=== PATIENT | female | born 1935 | race Caucasian/White ===

== ENCOUNTER 2017-11-02 18:50 | Inpatient (IN) | payer OTHER, MEDICAID, MEDICARE ==
[~2017-11-02 18:50] MED LIST: AMLO5TAB2 PO; CLON0.5T PO; SIMV40TA PO; ZOLP5TAB3 PO
[2017-11-02] MEDS ORDERED: SODIUM CHLORIDE 0.9% FLUSH 10 ML FLUSH IV FLUSH PRN (19:45)
[2017-11-02] MEDS ORDERED: NALOXONE HCL 0.4 MG/ML AMP IV PUSH PRN (19:45)
[2017-11-02] MEDS ORDERED: ONDANSETRON HCL 4 MG/2 ML VIAL IVP PRN (19:45)
[2017-11-02 20:00] VITALS: BP 139/87; PULSE 85; RESP 19; TEMP 98.2; O2SAT 98
[2017-11-02] MEDS ORDERED: MORPHINE SULFATE 2 MG/ML SYRINGE IV PUSH PRN (20:00)
[2017-11-02] MEDS: SODIUM CHLOR 0.9% 1000 ML INJ 1,000 ML IV SCH (21:40)
[2017-11-02] MEDS: FAMOTIDINE 20 MG/2 ML VIAL IV PUSH SCH (21:41)
[2017-11-02] MEDS: SODIUM CHLORIDE 0.9% FLUSH 10 ML FLUSH IV FLUSH SCH (21:41)
--- NOTE | 2017-11-02 23:24 | HHI.HP ---
HPI Service [facility] Hospitalists Primary Care Physician Unknown . Admission Diagnosis Possible Esophageal Perforation . Diagnoses: (1) Esophageal perforation (2) Epigastric abdominal pain Chief Complaint: Epigastric pain Travel History International Travel<30 Days: No Contact w/Intl Traveler <30 Da: No History of Present Illness Ms. Driver is an 82 y/o female who presented to the emergency department and [place] complaining of epigastric pain for more than 1 week. She had an abdominal/pelvis CT done that showed a very small hiatal hernia with abnormal appearing thickened distal esophagus. There is a 2.0 x 1.3 cm air-filled collection at the GE junction which may be extraluminal and concerning for focal esophageal perforation. The patient was transferred to [facility] for medical management under the hospitalist service. The patient is seen in her hospital room with forestry foreman at bedside. She reports that her primary care physician gave her penicillin about 3 weeks ago for an ear infection and she had subsequent nausea and vomiting multiple times. She reports having gastritis for the past 10 years. She also reports some left flank pain - urinalysis was negative. She is clearly suffering from severe anxiety during the time of my visit it appears medically stable otherwise. It is difficult to get a good history from her as she tends to veer off topic frequently and frequently loses focus. She is complaining of difficulty sleeping and is requesting her anxiety medication. The patient reports generalized weakness and uses rolling walker for ambulation. Review of Systems Except as stated in HPI: all other systems reviewed are Neg Past Family Social History Past Medical History Hyperlipidemia Gastritis Depression Anxiety Reports history of myocardial infarction 3 but reports medical therapy only - denies cardiac stents or open heart surgery . Past Surgical History Hysterectomy with oophorectomy Left knee arthroplasty Left hip/femur ORIF Cholecystectomy . Reported Medications Reported Meds & Active Scripts Active Reported Zolpidem (Zolpidem Tartrate) 5 Mg Tab 5 Mg PO HS PRN Clonazepam 0.5 Mg Tab 0.5 Mg PO BID Simvastatin 40 Mg Tab 40 Mg PO HS Amlodipine (Amlodipine Besylate) 5 Mg Tab 5 Mg PO DAILY . Allergies: Coded Allergies: Penicillins (Verified Allergy, Severe, 11/02/17) aspirin (Verified Allergy, Unknown, 11/02/17) Family History Mother with heart problems Father with prostate cancer Sisters x 3 with WI . Social History Tobacco: denies ever smoking Alcohol: denies drinking alcohol Illicit Drugs: denies The patient reports that she lives alone and has to do everything for herself. . Physical Exam Vital Signs Vital Signs Date Time Temp Pulse Resp B/P (MAP) Pulse Ox O2 Delivery O2 Flow Rate FiO2 11/02/17 20:00 98.2 85 19 139/87 (104) 98 Physical Exam CONSTITUTIONAL: This is a well-nourished, well-developed elderly female patient, anxious and tearful throughout visit. INTEGUMENTARY: No rashes, ecchymoses or lesions. Cool and dry. HEAD: Atraumatic. Normocephalic. EYES: No scleral icterus. No injection or drainage. ENT: Nose without bleeding, purulent drainage. NECK: Trachea midline. No JVD. CARDIOVASCULAR: Regular rate and rhythm without murmurs, gallops, or rubs. RESPIRATORY: Clear to auscultation. Breath sounds equal bilaterally. No wheezes , rales, or rhonchi. GASTROINTESTINAL: Normal bowel sounds. Abdomen soft, mild epigastric tenderness without rebound, nondistended. No guarding. MUSCULOSKELETAL: Extremities without clubbing, cyanosis, or edema. No calf tenderness. NEUROLOGICAL: Awake and alert. Motor and sensory grossly within normal limits. Normal speech. PSYCHIATRIC: Appears severely anxious and tearful throughout visit. . Laboratory Laboratory Tests Test 11/02/17 16:20 White Blood Count 5.4 TH/MM3 Red Blood Count 4.02 MIL/MM3 Hemoglobin 12.3 GM/DL Hematocrit 37.5 % Mean Corpuscular Volume 93.3 FL Mean Corpuscular Hemoglobin 30.6 PG Mean Corpuscular Hemoglobin Concent 32.8 % Red Cell Distribution Width 14.7 % Platelet Count 212 TH/MM3 Mean Platelet Volume 10.7 FL Immature Granulocyte % (Auto) 0.2 % Neutrophils (%) (Auto) 61.0 % Lymphocytes (%) (Auto) 29.2 % Monocytes (%) (Auto) 8.1 % Eosinophils (%) (Auto) 1.1 % Basophils (%) (Auto) 0.4 % Immature Granulocyte # (Auto) 0.0 TH/MM3 Neutrophils # (Auto) 3.3 TH/MM3 Lymphocytes # (Auto) 1.6 TH/MM3 Monocytes # (Auto) 0.4 TH/MM3 Eosinophils # (Auto) 0.1 TH/MM3 Basophils # (Auto) 0.0 TH/MM3 CBC Comment DIFF FINAL Differential Comment Urine Color YELLOW Urine Turbidity CLEAR Urine pH 7.5 Urine Specific [place] LESS/EQUAL 1.005 Urine Protein NEG mg/dL Urine Glucose (UA) NEG mg/dL Urine Ketones NEG mg/dL Urine Occult Blood NEG Urine Nitrite NEG Urine Bilirubin NEG Urine Urobilinogen 0.2 MG/DL Urine Leukocyte Esterase NEG Urine Squamous Epithelial Cells 0-5 /hpf Microscopic Urinalysis Comment CULT NOT INDICATED Blood Urea Nitrogen 13 MG/DL Creatinine 0.90 MG/DL Random Glucose 120 MG/DL Total Protein 7.8 GM/DL Albumin 3.7 GM/DL Calcium Level 9.3 MG/DL Alkaline Phosphatase 112 U/L Aspartate Amino Transf (AST/SGOT) 14 U/L Alanine Aminotransferase (ALT/SGPT) 17 U/L Total Bilirubin 0.3 MG/DL Sodium Level 142 MEQ/L Potassium Level 3.7 MEQ/L Chloride Level 106 MEQ/L Carbon Dioxide Level 30.0 MEQ/L Anion Gap 6 MEQ/L Estimat Glomerular Filtration Rate 60 ML/MIN Troponin I LESS THAN 0.02 NG/ML Lipase 210 U/L . Imaging Last Impressions Chest X-Ray 11/02/171604 Signed Impressions: Service Date/Time: Thursday, November 02, 2017 16:32 - CONCLUSION: No acute disease. Andrei Correa MD Abdomen/Pelvis CT 11/02/17 160 Signed Impressions: Service Date/Time: Thursday, November 02, 2017 17:13 - CONCLUSION: 1. Very small hiatal hernia with abnormal appearing thickened distal esophagus. There is a 2.0 x 1.3 cm air-filled collection at the GE junction which may be extraluminal and concerning for focal esophageal perforation. Clinical correlation is recommended. 2. No additional acute abnormality in the abdomen or pelvis. 3. Colonic diverticulosis without evidence for diverticulitis. Yogi Lowery MD . Caprini VTE Risk Assessment Caprini VTE Risk Assessment: Mod/High Risk (score >= 2) Caprini Risk Assessment Model Point Value = 1 Point Value = 2 Point Value = 3 Point Value = 5 Age 41-60 Minor surgery BMI > 25 kg/m2 Swollen legs Varicose veins or History of unexplained or recurrent spontaneous Oral contraceptives or hormone replacement Sepsis (< 1 month) Serious lung disease, including pneumonia (< 1 month) Abnormal pulmonary function Acute myocardial infarction Congestive heart failure (< 1 month) History of inflammatory bowel disease Medical patient at bed rest Age 61-74 Arthroscopic surgery Major open surgery (> 45 min) Laparoscopic surgery (> 45 min) Malignancy Confined to bed (> 72 hours) Immobilizing plaster cast Central venous access Age >= 75 History of VTE Family history of VTE Factor V Leiden Prothrombin [id number] Lupus anticoagulant Anticardiolipin antibodies Elevated serum homocysteine Heparin-induced thrombocytopenia Other congenital or acquired thrombophilia Stroke (< 1 month) Elective arthroplasty Hip, pelvis, or leg fracture Acute spinal cord injury (< 1 month) Prophylaxis Regimen Total Risk Factor Score Risk Level Prophylaxis Regimen 0-1 Low Early ambulation 2 Moderate Order ONE of the following: *Sequential Compression Device (SCD) *Heparin 5000 units SQ BID 3-4 Higher Order ONE of the following medications: *Heparin 5000 units SQ TID *Enoxaparin/Lovenox 40 mg SQ daily (WT < 150 kg, CrCl > 30 mL/min) *Enoxaparin/Lovenox 30 mg SQ daily (WT < 150 kg, CrCl > 10-29 mL/min) *Enoxaparin/Lovenox 30 mg SQ BID (WT < 150 kg, CrCl > 30 mL/min) AND/OR *Sequential Compression Device (SCD) 5 or more Highest Order ONE of the following medications: *Heparin 5000 units SQ TID (Preferred with Epidurals) *Enoxaparin/Lovenox 40 mg SQ daily (WT < 150 kg, CrCl > 30 mL/min) *Enoxaparin/Lovenox 30 mg SQ daily (WT < 150 kg, CrCl > 10-29 mL/min) *Enoxaparin/Lovenox 30 mg SQ BID (WT < 150 kg, CrCl > 30 mL/min) AND *Sequential Compression Device (SCD) Assessment and Plan Problem List: (1) Anxiety ICD Code: F41.9 - Anxiety disorder, unspecified (2) Esophageal perforation ICD Code: K22.3 - Perforation of esophagus Status: Acute (3) Epigastric abdominal pain ICD Code: R10.13 - Epigastric pain Status: Acute Assessment and Plan Ms. Driver is an 82 y/o female who presented to the emergency department and [place] complaining of epigastric pain for more than 1 week. She had an abdominal/pelvis CT done that showed a very small hiatal hernia with abnormal appearing thickened distal esophagus. There is a 2.0 x 1.3 cm air-filled collection at the GE junction which may be extraluminal and concerning for focal esophageal perforation. The patient was transferred to [facility] for medical management under the hospitalist service. Concern for esophageal perforation Epigastric abdominal pain -NPO -Consult general surgery - ER physician in [place] reportedly spoke with Dr. Owens -Morphine 2 mg IV every 3 hours as needed pain -Famotidine 20 mg IV every 12 hours Severe anxiety -Holding home medications because of concern for esophageal perforation -takes Klonopin at home -We will give Ativan 0.5 mg IV 1 dose now -Monitor for effectiveness Coronary artery disease History of WI per patient -Continuous cardiac telemetry to monitor for cardiac arrhythmias Physical therapy consulted to prevent further debility -patient reports generalized weakness and uses rolling walker for ambulation DVT prophylaxis -SCDs/teds Discussed Condition With patient and RN Physician Certification 2 Midnight Certification Type: Admission for Inpatient Services Order for Inpatient Services The services are ordered in accordance with Medicare regulations or non- Medicare payer requirements, as applicable. In the case of services not specified as inpatient-only, they are appropriately provided as inpatient services in accordance with the 2-midnight benchmark. Estimated LOS (days): 3 days is the estimated time the patient will need to remain in the hospital, assuming treatment plan goals are met and no additional complications. Post-Hospital Plan: Not yet determined Concepción Newby November 02, 2017 23:24
[2017-11-03] VITALS (7 sets, daily range): BP systolic 138–179; BP diastolic 70–97; PULSE 62–77; RESP 17–19; TEMP 97.4–98.1; O2SAT 95–98
[2017-11-03] MEDS ORDERED: LORazepam 2 MG/ML VIAL IV PUSH ONE
[2017-11-03] MEDS ORDERED: LORazepam 2 MG/ML VIAL IV ONE (03:15)
[2017-11-03 08:43] LABS: AUTOMATED NEUTROPHIL # 3.1 TH/MM3 (1.8-7.7); BASOPHIL % 0.5 % (0.0-2.0); EOSINOPHIL # 0.1 TH/MM3 (0-0.4); EOSINOPHIL % 1.1 % (0.0-4.0); HEMATOCRIT 36.7 % (35.0-46.0); HEMOGLOBIN 12.4 GM/DL (11.6-15.3); LYMPH % 24.9 % (9.0-44.0); LYMPHOCYTE # 1.2 TH/MM3 (1.0-4.8); MEAN CELL VOLUME 92.9 FL (80.0-100.0); MEAN CORPUSCULAR HEMOGLOBIN 31.2 PG (27.0-34.0); MEAN CORPUSCULAR HGB CONC 33.6 % (32.0-36.0); MEAN PLATELET VOLUME 8.7 FL (7.0-11.0); MONO % 8.6 % (0.0-8.0); MONOCYTE # 0.4 TH/MM3 (0-0.9); NEUT % 64.9 % (16.0-70.0); PLATELET COUNT 190 TH/MM3 (150-450); RED BLOOD COUNT 3.96 MIL/MM3 (4.00-5.30); RED CELL DISTRIBUTION WIDTH 14.7 % (11.6-17.2); WHITE BLOOD COUNT 4.7 TH/MM3 (4.0-11.0)
[2017-11-03] MEDS: FAMOTIDINE 20 MG/2 ML VIAL IV PUSH SCH ×2 (08:55→20:33)
[2017-11-03 08:58] LABS: BICARBONATE 28.2 MEQ/L (21.0-32.0); CREATININE 0.78 MG/DL (0.50-1.00)
[2017-11-03] MEDS: SODIUM CHLORIDE 0.9% FLUSH 10 ML FLUSH IV FLUSH SCH ×2 (09:00→20:33)
[2017-11-03] MEDS: SODIUM CHLOR 0.9% 1000 ML INJ 1,000 ML IV SCH (11:24)
--- NOTE | 2017-11-03 11:28 | HHI.PR ---
Subjective Remarks Note from admitting physician as 82 y/o female who presented to the emergency department and [place] complaining of epigastric pain for more than 1 week. She had an abdominal/pelvis CT done that showed a very small hiatal hernia with abnormal appearing thickened distal esophagus. There is a 2.0 x 1.3 cm air-filled collection at the GE junction which may be extraluminal and concerning for focal esophageal perforation. The patient was transferred to [facility] for medical management under the hospitalist service. Her primary care physician gave her penicillin about 3 weeks ago for an ear infection and she had subsequent nausea and vomiting multiple times. She reports having gastritis for the past 10 years. She also reports some left flank pain - urinalysis was negative. She is clearly suffering from severe anxiety during the time of my visit it appears medically stable otherwise. It is difficult to get a good history from her as she tends to veer off topic frequently and frequently loses focus. She is complaining of difficulty sleeping and is requesting her anxiety medication. The patient reports generalized weakness and uses rolling walker for ambulation. Hospitalist Note: 11/03: Seen in her bedroom I do not think she has Esophageal Perforation, her abdomen is benign, also she states had recent workup and was negative. no nausea, vomit or diarrhea, Seen in the presence of her Son in the room. discussed with commission specialist. Objective Vital Signs Date Time Temp Pulse Resp B/P (MAP) Pulse Ox O2 Delivery O2 Flow Rate FiO2 11/03/17 08:00 98.1 62 18 161/90 (113) 97 11/03/17 04:00 98.1 62 18 140/71 (94) 98 11/03/17 00:11 73 11/03/17 00:00 97.9 77 19 179/80 (113) 95 11/02/17 20:00 98.2 85 19 139/87 (104) 98 I/O 11/02/17 11/02/17 11/02/17 11/03/17 11/03/17 11/03/17 07:00 15:00 23:00 07:00 15:00 23:00 Intake Total 620 ml Output Total 800 ml Balance -180 ml Intake Oral 0 ml IV Total 620 ml Output Urine Total 800 ml # Voids 2 Result Diagram: 11/03/17 0711/03/17 07 Procedures None Other Results Laboratory Tests Test 11/03/17 07:17 White Blood Count 4.7 TH/MM3 Red Blood Count 3.96 MIL/MM3 Hemoglobin 12.4 GM/DL Hematocrit 36.7 % Mean Corpuscular Volume 92.9 FL Mean Corpuscular Hemoglobin 31.2 PG Mean Corpuscular Hemoglobin Concent 33.6 % Red Cell Distribution Width 14.7 % Platelet Count 190 TH/MM3 Mean Platelet Volume 8.7 FL Neutrophils (%) (Auto) 64.9 % Lymphocytes (%) (Auto) 24.9 % Monocytes (%) (Auto) 8.6 % Eosinophils (%) (Auto) 1.1 % Basophils (%) (Auto) 0.5 % Neutrophils # (Auto) 3.1 TH/MM3 Lymphocytes # (Auto) 1.2 TH/MM3 Monocytes # (Auto) 0.4 TH/MM3 Eosinophils # (Auto) 0.1 TH/MM3 Basophils # (Auto) 0.0 TH/MM3 CBC Comment DIFF FINAL Differential Comment Blood Urea Nitrogen 9 MG/DL Creatinine 0.78 MG/DL Random Glucose 92 MG/DL Calcium Level 9.0 MG/DL Sodium Level 143 MEQ/L Potassium Level 3.8 MEQ/L Chloride Level 109 MEQ/L Carbon Dioxide Level 28.2 MEQ/L Anion Gap 6 MEQ/L Estimat Glomerular Filtration Rate 71 ML/MIN Objective Remarks CONSTITUTIONAL: This is a well-nourished, well-developed elderly female patient, anxious and tearful throughout visit. INTEGUMENTARY: No rashes, ecchymoses or lesions. Cool and dry. HEAD: Atraumatic. Normocephalic. EYES: No scleral icterus. No injection or drainage. ENT: Nose without bleeding, purulent drainage. NECK: Trachea midline. No JVD. CARDIOVASCULAR: Regular rate and rhythm without murmurs, gallops, or rubs. RESPIRATORY: Clear to auscultation. Breath sounds equal bilaterally. No wheezes , rales, or rhonchi. GASTROINTESTINAL: Normal bowel sounds. Abdomen soft, mild epigastric tenderness without rebound, nondistended. No guarding. MUSCULOSKELETAL: Extremities without clubbing, cyanosis, or edema. No calf tenderness. NEUROLOGICAL: Awake and alert. Motor and sensory grossly within normal limits. Normal speech. PSYCHIATRIC: Appears severely anxious and tearful throughout visit. . Medications and IVs Current Medications Medications (Trade) Dose Ordered Sig/Conchis Route Start Time Stop Time Status Last Admin Sodium Chloride 1,000 ml @ 65 mls/hr [id number] IV 11/02/17 20:00 11/02/17 21:40 (NS Flush) 2 ml UNSCH PRN IV FLUSH 11/02/17 19:45 (NS Flush) 2 ml BID IV FLUSH 11/02/17 21:00 11/02/17 21:41 (Zofran Inj) 4 mg Q6H PRN IVP 11/02/17 19:45 (Narcan Inj) 0.4 mg UNSCH PRN IV PUSH 11/02/17 19:45 (Pepcid Inj) 20 mg Q12H IV PUSH 11/02/17 21:00 11/03/17 08:55 (Morphine Inj) 2 mg Q3H PRN IV PUSH 11/02/17 21:45 A/P Assessment and Plan (1) Anxiety ICD Code: F41.9 - Anxiety disorder, unspecified (2) Esophageal perforation ICD Code: K22.3 - Perforation of esophagus Status: Acute (3) Epigastric abdominal pain ICD Code: R10.13 - Epigastric pain Status: Acute Ms. Driver is an 82 y/o female who presented to the emergency department and [place] complaining of epigastric pain for more than 1 week. She had an abdominal/pelvis CT done that showed a very small hiatal hernia with abnormal appearing thickened distal esophagus. There is a 2.0 x 1.3 cm air-filled collection at the GE junction which may be extraluminal and concerning for focal esophageal perforation. The patient was transferred to [facility] for medical management under the hospitalist service. Questionable Esophageal perforation, continue NPO, Barium swallow tomorrow recommended by Doctor Ras Rodriguez. Epigastric abdominal pain -NPO -Morphine 2 mg IV every 3 hours as needed pain -Famotidine 20 mg IV every 12 hours Severe anxiety stable at this time. -Holding home medications because of concern for esophageal perforation -takes Klonopin at home Coronary artery disease History of [place] per patient -Continuous cardiac telemetry to monitor for cardiac arrhythmias Physical therapy consulted to prevent further debility -patient reports generalized weakness and uses rolling walker for ambulation DVT prophylaxis -SCDs/teds Discussed Condition With patient , Nurse Miss Field and Her Son. discussed with doctor Ras Rodriguez Discharge Planning Expected in am tomorrow. Marky Jenkins MD November 03, 2017 11:28
--- NOTE | 2017-11-03 15:57 | MB ---
cc: Jennifer Dimas MD DATE: 11/03/2017 REASON FOR CONSULTATION: Suspected esophageal contained perforation, gastritis and epigastric pain. HISTORY OF PRESENT ILLNESS: This 82-year-old female presented to [place] [facility] with epigastric pain of about 2 weeks' duration. The patient states she does not have any nausea and vomiting, but she is having epigastric pain. There is a history of gastritis for about 10 years and then the patient also complains about left flank pain. The patient is a very poor historian, speaks only [place]e and the entire conversation is conducted with her son and patient through the [employer] service. She underwent CT of abdomen and pelvis and it was read as a possible contained esophageal perforation, but the patient at this point is asymptomatic as far as that is concerned. PAST MEDICAL HISTORY: Longstanding gastritis, hyperlipidemia, depression, anxiety, history of myocardial infarction, but the patient does not have any history of treatment of the heart, so I am not sure about that. PAST SURGICAL HISTORY: Left hip and femur, open reduction and internal fixation of the left knee replacement, hysterectomy, oophorectomy and cholecystectomy. MEDICATIONS: Can be found in the record. SOCIAL HISTORY: The patient does not smoke or drink. PHYSICAL EXAMINATION: GENERAL: Reveals a pleasant 82-year-old lady. HEENT: Normocephalic. No trauma to the head. Pupils are equal, reactive. Extraocular muscles intact. NECK: Supple. Bilateral carotid pulses. No bruits. No lymphadenopathy in the supraclavicular, infraclavicular, axillary area of the neck. CHEST: Bilateral breath sounds. The patient clearly lost some chest wall musculature for she is fairly thin and appears slightly cachectic. HEART: Regular rhythm. ABDOMEN: Soft. No rebound, no guarding. No masses, no tenderness on palpation. The patient is slightly tender on succussion of the left renal fossa, but no referred tenderness is noted. Pelvis is stable. EXTREMITIES: Within normal limits. BACK: Normal. IMPRESSION: I reviewed laboratory and diagnostic procedures. This lady lost about 10 pounds in the last few months. Has epigastric pain symptoms and the CT scan is now performed and reveals questionable esophageal perf. Clinically, this does not correlate. The patient is clearly asymptomatic as far as perforation is concerned and this may be a hiatal hernia or rarely an epiphrenic diverticulum. Very rarely there will be a duplication cyst and such. Nonetheless, at this point it is reasonable to perform dilute barium swallow and see if the patient has any abnormalities either in the sense of perhaps a contained leak or a mass in the esophagus. Based on all this, will tailor further therapy, but there is no indication for surgery at this time. I thank you much for the referral. MD YARON Maya/YUKI , 03:21 PM , 03:56 PM [email or web address]
[2017-11-03] MEDS: MORPHINE SULFATE 4 MG/ML INJ IV PUSH PRN (16:39)
[2017-11-04] VITALS (7 sets, daily range): BP systolic 139–171; BP diastolic 70–93; PULSE 61–116; RESP 15–19; TEMP 97.2–98.2; O2SAT 92–96
[2017-11-04] MEDS: SODIUM CHLOR 0.9% 1000 ML INJ 1,000 ML IV SCH ×2 (03:43→18:09)
[2017-11-04 08:13] LABS: AUTOMATED NEUTROPHIL # 3.1 TH/MM3 (1.8-7.7); BASOPHIL % 0.4 % (0.0-2.0); EOSINOPHIL # 0.1 TH/MM3 (0-0.4); EOSINOPHIL % 1.5 % (0.0-4.0); HEMATOCRIT 38.1 % (35.0-46.0); HEMOGLOBIN 12.8 GM/DL (11.6-15.3); LYMPHOCYTE # 1.1 TH/MM3 (1.0-4.8); MEAN CELL VOLUME 92.2 FL (80.0-100.0); MEAN CORPUSCULAR HEMOGLOBIN 30.9 PG (27.0-34.0); MEAN CORPUSCULAR HGB CONC 33.5 % (32.0-36.0); MEAN PLATELET VOLUME 8.6 FL (7.0-11.0); MONO % 8.4 % (0.0-8.0); MONOCYTE # 0.4 TH/MM3 (0-0.9); NEUT % 66.7 % (16.0-70.0); PLATELET COUNT 207 TH/MM3 (150-450); RED BLOOD COUNT 4.13 MIL/MM3 (4.00-5.30); RED CELL DISTRIBUTION WIDTH 14.7 % (11.6-17.2); WHITE BLOOD COUNT 4.6 TH/MM3 (4.0-11.0)
[2017-11-04 08:38] LABS: BICARBONATE 25.3 MEQ/L (21.0-32.0); CALCIUM 9.5 MG/DL (8.5-10.1); CREATININE 0.74 MG/DL (0.50-1.00)
[2017-11-04] MEDS: FAMOTIDINE 20 MG/2 ML VIAL IV PUSH SCH ×2 (08:40→20:42)
[2017-11-04] MEDS: SODIUM CHLORIDE 0.9% FLUSH 10 ML FLUSH IV FLUSH SCH ×2 (08:40→20:46)
--- NOTE | 2017-11-04 09:09 | HHI.PR ---
Subjective Remarks Note from admitting physician as 82 y/o female who presented to the emergency department and [place] complaining of epigastric pain for more than 1 week. She had an abdominal/pelvis CT done that showed a very small hiatal hernia with abnormal appearing thickened distal esophagus. There is a 2.0 x 1.3 cm air-filled collection at the GE junction which may be extraluminal and concerning for focal esophageal perforation. The patient was transferred to [facility] for medical management under the hospitalist service. Her primary care physician gave her penicillin about 3 weeks ago for an ear infection and she had subsequent nausea and vomiting multiple times. She reports having gastritis for the past 10 years. She also reports some left flank pain - urinalysis was negative. She is clearly suffering from severe anxiety during the time of my visit it appears medically stable otherwise. It is difficult to get a good history from her as she tends to veer off topic frequently and frequently loses focus. She is complaining of difficulty sleeping and is requesting her anxiety medication. The patient reports generalized weakness and uses rolling walker for ambulation. Hospitalist Note: 11/03: Seen in her bedroom I do not think she has Esophageal Perforation, her abdomen is benign, also she states had recent workup and was negative. Seen in the presence of her Son in the room. discussed with human resources support specialist. 11/04: Stable seen by General surgery after Barium swallow and no surgical procedure needed but Doctor Rodriguez recommended for full GI workup asked for GI specialist consult. no nausea, vomit but has diarrhea after the the test performed. Objective Vital Signs Date Time Temp Pulse Resp B/P (MAP) Pulse Ox O2 Delivery O2 Flow Rate FiO2 11/04/17 08:00 97.8 68 17 168/75 (106) 96 11/04/17 04:00 98.1 68 18 161/70 (100) 92 11/04/17 03:29 62 11/04/17 00:00 97.2 61 18 139/73 (95) 96 11/03/17 20:00 98.0 66 18 156/74 (101) 98 11/03/17 16:00 98.0 70 19 162/70 (100) 98 11/03/17 12:00 97.4 68 17 138/97 (111) 97 I/O 11/03/17 11/03/17 11/03/17 11/04/17/21/18 5/21/18 07:00 15:00 23:00 07:00 15:00 23:00 Intake Total 620 ml 0 ml 1000 ml Output Total 800 ml Balance -180 ml 0 ml 1000 ml Intake Oral 0 ml 0 ml 0 ml IV Total 620 ml 1000 ml Output Urine Total 800 ml # Voids 2 8 3 # Bowel Movements 0 Result Diagram: 11/04/17 0642 11/04/17 0642 Imaging Last Impressions Upper GI/Barium Swallow X-Ray 11/04/17 0000 Signed Impressions: Service Date/Time: Saturday, November 04, 2017 09:19 - CONCLUSION: Unremarkable examination of the esophagus. No evidence of GE junction injury. Small epiphrenic diverticulum Keon Arreguin MD Procedures None Other Results Laboratory Tests Test 11/04/17 06:42 White Blood Count 4.6 TH/MM3 Red Blood Count 4.13 MIL/MM3 Hemoglobin 12.8 GM/DL Hematocrit 38.1 % Mean Corpuscular Volume 92.2 FL Mean Corpuscular Hemoglobin 30.9 PG Mean Corpuscular Hemoglobin Concent 33.5 % Red Cell Distribution Width 14.7 % Platelet Count 207 TH/MM3 Mean Platelet Volume 8.6 FL Neutrophils (%) (Auto) 66.7 % Lymphocytes (%) (Auto) 23.0 % Monocytes (%) (Auto) 8.4 % Eosinophils (%) (Auto) 1.5 % Basophils (%) (Auto) 0.4 % Neutrophils # (Auto) 3.1 TH/MM3 Lymphocytes # (Auto) 1.1 TH/MM3 Monocytes # (Auto) 0.4 TH/MM3 Eosinophils # (Auto) 0.1 TH/MM3 Basophils # (Auto) 0.0 TH/MM3 CBC Comment DIFF FINAL Differential Comment Blood Urea Nitrogen 9 MG/DL Creatinine 0.74 MG/DL Random Glucose 73 MG/DL Calcium Level 9.5 MG/DL Sodium Level 141 MEQ/L Potassium Level 3.8 MEQ/L Chloride Level 106 MEQ/L Carbon Dioxide Level 25.3 MEQ/L Anion Gap 10 MEQ/L Estimat Glomerular Filtration Rate 76 ML/MIN Objective Remarks CONSTITUTIONAL: This is a well-nourished, well-developed elderly female patient, anxious and tearful throughout visit. INTEGUMENTARY: No rashes, ecchymoses or lesions. Cool and dry. HEAD: Atraumatic. Normocephalic. EYES: No scleral icterus. No injection or drainage. ENT: Nose without bleeding, purulent drainage. NECK: Trachea midline. No JVD. CARDIOVASCULAR: Regular rate and rhythm without murmurs, gallops, or rubs. RESPIRATORY: Clear to auscultation. Breath sounds equal bilaterally. No wheezes , rales, or rhonchi. GASTROINTESTINAL: Normal bowel sounds. Abdomen soft, mild epigastric tenderness without rebound, nondistended. No guarding. MUSCULOSKELETAL: Extremities without clubbing, cyanosis, or edema. No calf tenderness. NEUROLOGICAL: Awake and alert. Motor and sensory grossly within normal limits. Normal speech. PSYCHIATRIC: Appears severely anxious and tearful throughout visit. . Medications and IVs Current Medications Medications (Trade) Dose Ordered Sig/Conchis Route Start Time Stop Time Status Last Admin Sodium Chloride 1,000 ml @ 65 mls/hr [id number] IV 11/02/17 20:00 11/04/17 03:43 (NS Flush) 2 ml UNSCH PRN IV FLUSH 11/02/17 19:45 (NS Flush) 2 ml BID IV FLUSH 11/02/17 21:00 11/04/17 08:40 (Zofran Inj) 4 mg Q6H PRN IVP 11/02/17 19:45 11/04/17 04:15 (Narcan Inj) 0.4 mg UNSCH PRN IV PUSH 11/02/17 19:45 (Pepcid Inj) 20 mg Q12H IV PUSH 11/02/17 21:00 11/04/17 08:40 (Morphine Inj) 2 mg Q3H PRN IV PUSH 11/02/17 21:45 11/03/17 16:39 A/P Assessment and Plan (1) Anxiety ICD Code: F41.9 - Anxiety disorder, unspecified (2) Esophageal perforation ICD Code: K22.3 - Perforation of esophagus Status: Acute (3) Epigastric abdominal pain ICD Code: R10.13 - Epigastric pain Status: Acute Ms. Driver is an 82 y/o female who presented to the emergency department and [place] complaining of epigastric pain for more than 1 week. She had an abdominal/pelvis CT done that showed a very small hiatal hernia with abnormal appearing thickened distal esophagus. There is a 2.0 x 1.3 cm air-filled collection at the GE junction which may be extraluminal and concerning for focal esophageal perforation. The patient was transferred to [facility] for medical management under the hospitalist service. Questionable Esophageal perforation, continue NPO, Barium swallow tomorrow recommended by Doctor Ras Rodriguez. Epigastric abdominal pain, Barium swallow did not found esophageal perforation. recommended for GI specialist consult Severe anxiety stable at this time. -Holding home medications because of concern for esophageal perforation -takes Klonopin at home Coronary artery disease History of [place] per patient -Continuous cardiac telemetry to monitor for cardiac arrhythmias Physical therapy consulted to prevent further debility -patient reports generalized weakness and uses rolling walker for ambulation DVT prophylaxis -SCDs/teds Discussed Condition With Patient in the room. Discharge Planning once cleared by GI specialist. Marky Jenkins MD November 04, 2017 09:09
[2017-11-04] MEDS ORDERED: ZOLPIDEM TARTRATE 5 MG TAB PO PRN (09:15)
[2017-11-04] MEDS: MORPHINE SULFATE 4 MG/ML INJ IV PUSH PRN (09:59)
[2017-11-04] MEDS ORDERED: DIATRIZOATE MEGLUM/DIATRIZOATE SOD 120 ML BTL (for RAD DIAG) PO ONE (09:59)
--- NOTE | 2017-11-04 10:19 | PD.CAR.PN ---
CVT Progress Note Subjective/Hospital Course: 11/04/17 Patient awake alert oriented Abdomen soft active bowel sounds slightly tender in epigastrium. Just finished her barium swallow study evaluation of which is below. I reviewed laboratory and diagnostic procedures. This lady lost about 10 pounds in the last few months. Has epigastric pain symptoms and the CT scan is now performed and reveals questionable esophageal perf. Clinically, this does not correlate. The patient is clearly asymptomatic as far as perforation is concerned and this may be a hiatal hernia or possibly epiphrenic diverticulum. Very rarely there will be a duplication cyst and such. Nonetheless, at this point it was reasonable to perform dilute barium swallow and see if the patient has any abnormalities either in the sense of perhaps a contained leak or a mass in the esophagus. I reviewed the barium swallow which has not been read yet but I do not see any perforation and there is a fairly smooth transition into the gastric fundus Based on this I believe patient should have a further workup for her difficulties including EGD, yet I do not see an indication for surgery at this time We will be available if some surgical issues arise during the workup Objective: Vital Signs Date Time Temp Pulse Resp B/P (MAP) Pulse Ox O2 Delivery O2 Flow Rate FiO2 11/04/17 08:00 97.8 68 17 168/75 (106) 96 11/04/17 04:00 98.1 68 18 161/70 (100) 92 11/04/17 03:29 62 11/04/17 00:00 97.2 61 18 139/73 (95) 96 11/03/17 20:00 98.0 66 18 156/74 (101) 98 11/03/17 16:00 98.0 70 19 162/70 (100) 98 11/03/17 12:00 97.4 68 17 138/97 (111) 97 Labs: Laboratory Tests Test 11/04/17 06:42 White Blood Count 4.6 TH/MM3 (4.0-11.0) Red Blood Count 4.13 MIL/MM3 (4.00-5.30) Hemoglobin 12.8 GM/DL (11.6-15.3) Hematocrit 38.1 % (35.0-46.0) Mean Corpuscular Volume 92.2 FL (80.0-100.0) Mean Corpuscular Hemoglobin 30.9 PG (27.0-34.0) Mean Corpuscular Hemoglobin Concent 33.5 % (32.0-36.0) Red Cell Distribution Width 14.7 % (11.6-17.2) Platelet Count 207 TH/MM3 (150-450) Mean Platelet Volume 8.6 FL (7.0-11.0) Neutrophils (%) (Auto) 66.7 % (16.0-70.0) Lymphocytes (%) (Auto) 23.0 % (9.0-44.0) Monocytes (%) (Auto) 8.4 % (0.0-8.0) Eosinophils (%) (Auto) 1.5 % (0.0-4.0) Basophils (%) (Auto) 0.4 % (0.0-2.0) Neutrophils # (Auto) 3.1 TH/MM3 (1.8-7.7) Lymphocytes # (Auto) 1.1 TH/MM3 (1.0-4.8) Monocytes # (Auto) 0.4 TH/MM3 (0-0.9) Eosinophils # (Auto) 0.1 TH/MM3 (0-0.4) Basophils # (Auto) 0.0 TH/MM3 (0-0.2) CBC Comment DIFF FINAL Differential Comment Blood Urea Nitrogen 9 MG/DL (7-18) Creatinine 0.74 MG/DL (0.50-1.00) Random Glucose 73 MG/DL (74-106) Calcium Level 9.5 MG/DL (8.5-10.1) Sodium Level 141 MEQ/L (136-145) Potassium Level 3.8 MEQ/L (3.5-5.1) Chloride Level 106 MEQ/L (98-107) Carbon Dioxide Level 25.3 MEQ/L (21.0-32.0) Anion Gap 10 MEQ/L (5-15) Estimat Glomerular Filtration Rate 76 ML/MIN (>89) Result Diagram: 11/04/17 0642 11/04/17 0642 Jennifer Dimas MD November 04, 2017 10:19
--- NOTE | 2017-11-04 10:22 | RADRPT ---
EXAM DATE/TIME: 11/04/2017 09:19 [place] COMPARISON: No previous studies available for comparison. INDICATIONS : Low probability contained esophageal perforation and weight loss. Patient complains of weakness and e pigastric pain. Patient has constant burping. Patient feels like she is drowning when she drinks wate r. She hasn't had anything in 2 days. FLUORO TIME: 1.2 minutes IMAGE COUNT: 7 CONTRAST: 1. Gastrografin (Diatrizoate Meglumine and Diatrizoate Sodium) 2. Liquid E-Z Paque Barium Sulfate (60% w/v, 41% w.w) MEDICAL HISTORY : Gastritis.Cholelithiasis. Gastroesophageal reflux disease. SURGICAL HISTORY : Hysterectomy. ENCOUNTER: Subsequent ACUITY: 1 week PAIN SCORE: 10/10 LOCATION: Esophagus/chest mediastinal area. FINDINGS: The patient was given Gastrografin to swallow in the esophagus and GE junction was evaluated. The pat ient was subsequently given thin barium liquid. The esophagus is normal in caliber throughout with satisfactory motility. There is no evidence of str icture, mass or ulceration. There is a small diverticular outpouching at the GE junction which is con sistent with an epiphrenic diverticulum. The finding fills and empties with barium in characteristic diverticular fashion. This does not have the appearance of an injury. CONCLUSION: Unremarkable examination of the esophagus. No evidence of GE junction injury. Small epiphrenic diverticulum Keon Arreguin MD on November 04, 2017 at 10:18 Board Certified Radiologist. This report was verified electronically.
[2017-11-04] MEDS: clonazePAM 0.5 MG TAB PO SCH (20:42)
[2017-11-04] MEDS: PRAVASTATIN SOD 80 MG TAB PO SCH (20:42)
[2017-11-05] VITALS: BP 145/73; PULSE 121; PULSE 70; RESP 15; TEMP 98.1; O2SAT 92
[2017-11-05 04:00] VITALS: BP 144/74; PULSE 112; RESP 15; TEMP 98; O2SAT 93
[2017-11-05 08:00] VITALS: BP 154/77; PULSE 67; RESP 18; TEMP 98; O2SAT 97
[2017-11-05] MEDS: SODIUM CHLORIDE 0.9% FLUSH 10 ML FLUSH IV FLUSH SCH ×2 (09:00→20:26)
[2017-11-05] MEDS: clonazePAM 0.5 MG TAB PO SCH ×2 (10:06→20:25)
[2017-11-05] MEDS: amLODIPine BESYLATE 5 MG TAB PO SCH (10:06)
[2017-11-05] MEDS: SODIUM CHLOR 0.9% 1000 ML INJ 1,000 ML IV SCH (10:06)
[2017-11-05] MEDS: FAMOTIDINE 20 MG/2 ML VIAL IV PUSH SCH ×2 (10:07→20:25)
[2017-11-05 12:00] VITALS: BP 144/64; PULSE 71; RESP 19; TEMP 97.8; O2SAT 98
--- NOTE | 2017-11-05 13:55 | PD.CONS ---
HPI History of Present Illness This is a 82 year old female who presented to ER in [place] for epigastric pain CT there showed hiatal hernia, abnormal appearing thickened esophagus, air filled collection GE junction concerning for perforation. GS was consulted and ordered gastrografin swallow which is negative for perforation but did show epiphrenic diverticulum. Pt c/o epigastric pain for 3 weeks. She says it is constant. She has also been having bloating and gas, and burping alot. She is complaining of acid reflux as well. Denies difficulty swallowing. No blood in stool, black tarry stool, nausea or vomiting. She is s/p cholecystectomy done in [place]. She had colonoscopy and EGD some years ago in [place]. Denies liver problems. SHe is also c/o joint pain in hips, knees, telling me she has to use a walker. (Rosette Huitron) PFSH Past Medical History Hyperlipidemia Gastritis Depression Anxiety Reports history of myocardial infarction 3 but reports medical therapy only - denies cardiac stents or open heart surgery . Past Surgical History Hysterectomy with oophorectomy Left knee arthroplasty Left hip/femur ORIF Cholecystectomy . (Rosette Huitron) Coded Allergies: Penicillins (Verified Allergy, Severe, 11/02/17) aspirin (Verified Allergy, Unknown, 11/02/17) Family History Mother with heart problems Father with prostate cancer Sisters x 3 with NC . Social History Tobacco: denies ever smoking Alcohol: denies drinking alcohol Illicit Drugs: denies The patient reports that she lives alone and has to do everything for herself. . (Rosette Huitron) Review of Systems Constitutional: DENIES: Fever Endocrine: DENIES: Polydipsia Eyes: DENIES: Blurred vision Ears, nose, mouth, throat: DENIES: Hearing loss Respiratory: DENIES: Cough Gastrointestinal: COMPLAINS OF: Abdominal pain, Constipation, DENIES: Black stools, Bloody stools, Nausea, Vomiting, Difficulty Swallowing Genitourinary: DENIES: Hematuria Musculoskeletal: COMPLAINS OF: Joint pain Integumentary: DENIES: Abnormal pigmentation Hematologic/lymphatic: DENIES: Bruising Immunologic/allergic: DENIES: Eczema Neurologic: COMPLAINS OF: Abnormal gait (uses walker) Psychiatric: COMPLAINS OF: Anxiety (Rosette Huitron) GI Exam Vitals I&O Vital Signs Date Time Temp Pulse Resp B/P (MAP) Pulse Ox O2 Delivery O2 Flow Rate FiO2 11/05/17 12:00 97.8 71 19 144/64 (90) 98 11/05/17 08:00 98.0 67 18 154/77 (102) 97 11/05/17 04:00 98.0 112 15 144/74 (97) 93 11/05/17 00:00 70 11/05/17 00:00 98.1 121 15 145/73 (97) 92 11/04/17 20:00 97.9 116 15 155/72 (99) 95 11/04/17 16:00 97.7 75 19 142/75 (97) 96 I/O 11/04/17 11/04/17 11/04/17 11/05/17 11/05/17 11/05/17 07:00 15:00 23:00 07:00 15:00 23:00 Intake Total 1000 ml 1536 ml 240 ml Output Total 5 ml Balance 1000 ml 1531 ml 240 ml Intake Oral 0 ml 720 ml 240 ml IV Total 1000 ml 816 ml Output Urine Total 5 ml # Voids 3 2 # Bowel Movements 12 0 Imaging Last Impressions Upper GI/Barium Swallow X-Ray 11/04/17 0000 Signed Impressions: Service Date/Time: Saturday, November 04, 2017 09:19 - CONCLUSION: Unremarkable examination of the esophagus. No evidence of GE junction injury. Small epiphrenic diverticulum Keon Arreguin MD Laboratory Test 11/04/17 17:47 Stool C. difficile Toxin (PCR) NEGATIVE Stl C. difficile Toxin Epiderm 027 PRESUMPTIVE NEGATIVE Physical Examination HEENT: PERRL; normocephalic; atraumatic; no jaundice. CHEST: CTA CARDIAC: RRR ABDOMEN: Soft, nondistended, nontender; no hepatosplenomegaly; bowel sounds are present in all four quadrants. EXTREMITIES: No clubbing, cyanosis, or edema. SKIN: Normal; no rash; no jaundice. APPEALS MANAGER: No focal deficits; alert and oriented times three. (Rosette Huitron TEACHER OF [employer] IMPA[employer]) Assessment and Plan Plan ASSESSMENT - epigastric pain, burping, reflux - duration 3 weeks. gastrografin swallow showed epiphrenic diverticulum. s/p cholecystectomy. tolerating diet. gastritis vs PUD. EGD and colonoscopy some years ago in [place]. denies other GI sx PLAN - EGD in am - obtain consent - NPO after midnight - PPI - further recs to follow pt seen by myself and Dr Regalado and this note is on his behalf (Rosette Huitron) Physician Comments Patient seen and examined Agree with above Continue with current supportive care Monitor labs Plan for an EGD tomorrow (Wisam Regalado MD) Rosette Huitron November 05, 2017 13:55 Wisam Regalado MD November 05, 2017 22:35
[2017-11-05] MEDS: PANTOPRAZOLE SOD 40 MG DELAYED RELEASE TAB PO SCH (15:51)
[2017-11-05 16:00] VITALS: BP 148/65; PULSE 66; RESP 18; TEMP 97.5; O2SAT 98
--- NOTE | 2017-11-05 18:11 | HHI.PR ---
Subjective Remarks Note from admitting physician as 82 y/o female who presented to the emergency department and [place] complaining of epigastric pain for more than 1 week. She had an abdominal/pelvis CT done that showed a very small hiatal hernia with abnormal appearing thickened distal esophagus. There is a 2.0 x 1.3 cm air-filled collection at the GE junction which may be extraluminal and concerning for focal esophageal perforation. The patient was transferred to [facility] for medical management under the hospitalist service. Her primary care physician gave her penicillin about 3 weeks ago for an ear infection and she had subsequent nausea and vomiting multiple times. She reports having gastritis for the past 10 years. She also reports some left flank pain - urinalysis was negative. She is clearly suffering from severe anxiety during the time of my visit it appears medically stable otherwise. It is difficult to get a good history from her as she tends to veer off topic frequently and frequently loses focus. She is complaining of difficulty sleeping and is requesting her anxiety medication. The patient reports generalized weakness and uses rolling walker for ambulation. Hospitalist Note: 11/03: Seen in her bedroom I do not think she has Esophageal Perforation, her abdomen is benign, also she states had recent workup and was negative. Seen in the presence of her Son in the room. discussed with relationship specialist. 11/04: Stable seen by General surgery after Barium swallow and no surgical procedure needed but Doctor Jennifer recommended for full GI workup asked for GI specialist consult. no nausea, vomit but has diarrhea after the the test performed. 11/05: Discussed in her bedroom with nurse and patient, seen by GI specialist status post Gastrografin swallow showed epiphrenic diverticulum, status post cholecystectomy, tolerating diet, asked for EGD to be performed in am tomorrow. no nausea, vomit but has diarrhea five BMs today. Objective Vital Signs Date Time Temp Pulse Resp B/P (MAP) Pulse Ox O2 Delivery O2 Flow Rate FiO2 11/05/17 16:00 97.5 66 18 148/65 (92) 98 11/05/17 12:00 97.8 71 19 144/64 (90) 98 11/05/17 08:00 98.0 67 18 154/77 (102) 97 11/05/17 04:00 98.0 112 15 144/74 (97) 93 11/05/17 00:00 70 11/05/17 00:00 98.1 121 15 145/73 (97) 92 11/04/17 20:00 97.9 116 15 155/72 (99) 95 I/O 11/04/17 11/04/17 11/04/17 11/05/17 11/05/17 11/05/17 07:00 15:00 23:00 07:00 15:00 23:00 Intake Total 1000 ml 1536 ml 240 ml Output Total 5 ml Balance 1000 ml 1531 ml 240 ml Intake Oral 0 ml 720 ml 240 ml IV Total 1000 ml 816 ml Output Urine Total 5 ml # Voids 3 2 # Bowel Movements 12 0 Result Diagram: 11/04/17 0642 11/04/17 0642 Imaging Last Impressions Upper GI/Barium Swallow X-Ray 11/04/17 0000 Signed Impressions: Service Date/Time: Saturday, November 04, 2017 09:19 - CONCLUSION: Unremarkable examination of the esophagus. No evidence of GE junction injury. Small epiphrenic diverticulum Keon Arreguin MD Procedures None Other Results Laboratory Tests Test 11/04/17 06:42 11/04/17 17:47 White Blood Count 4.6 TH/MM3 Red Blood Count 4.13 MIL/MM3 Hemoglobin 12.8 GM/DL Hematocrit 38.1 % Mean Corpuscular Volume 92.2 FL Mean Corpuscular Hemoglobin 30.9 PG Mean Corpuscular Hemoglobin Concent 33.5 % Red Cell Distribution Width 14.7 % Platelet Count 207 TH/MM3 Mean Platelet Volume 8.6 FL Neutrophils (%) (Auto) 66.7 % Lymphocytes (%) (Auto) 23.0 % Monocytes (%) (Auto) 8.4 % Eosinophils (%) (Auto) 1.5 % Basophils (%) (Auto) 0.4 % Neutrophils # (Auto) 3.1 TH/MM3 Lymphocytes # (Auto) 1.1 TH/MM3 Monocytes # (Auto) 0.4 TH/MM3 Eosinophils # (Auto) 0.1 TH/MM3 Basophils # (Auto) 0.0 TH/MM3 CBC Comment DIFF FINAL Differential Comment Blood Urea Nitrogen 9 MG/DL Creatinine 0.74 MG/DL Random Glucose 73 MG/DL Calcium Level 9.5 MG/DL Sodium Level 141 MEQ/L Potassium Level 3.8 MEQ/L Chloride Level 106 MEQ/L Carbon Dioxide Level 25.3 MEQ/L Anion Gap 10 MEQ/L Estimat Glomerular Filtration Rate 76 ML/MIN Stool C. difficile Toxin (PCR) NEGATIVE Stl C. difficile Toxin Epiderm 027 PRESUMPTIVE NEGATIVE Objective Remarks CONSTITUTIONAL: This is a well-nourished, well-developed elderly female patient, anxious and tearful throughout visit. INTEGUMENTARY: No rashes, ecchymoses or lesions. Cool and dry. HEAD: Atraumatic. Normocephalic. EYES: No scleral icterus. No injection or drainage. ENT: Nose without bleeding, purulent drainage. NECK: Trachea midline. No JVD. CARDIOVASCULAR: Regular rate and rhythm without murmurs, gallops, or rubs. RESPIRATORY: Clear to auscultation. Breath sounds equal bilaterally. No wheezes , rales, or rhonchi. GASTROINTESTINAL: Normal bowel sounds. Abdomen soft, mild epigastric tenderness without rebound, nondistended. No guarding. MUSCULOSKELETAL: Extremities without clubbing, cyanosis, or edema. No calf tenderness. NEUROLOGICAL: Awake and alert. Motor and sensory grossly within normal limits. Normal speech. PSYCHIATRIC: Appears severely anxious and tearful throughout visit. . Medications and IVs Current Medications Medications (Trade) Dose Ordered Sig/Conchis Route Start Time Stop Time Status Last Admin Sodium Chloride 1,000 ml @ 65 mls/hr [id number] IV 11/02/17 20:00 11/05/17 10:06 (NS Flush) 2 ml UNSCH PRN IV FLUSH 11/02/17 19:45 (NS Flush) 2 ml BID IV FLUSH 11/02/17 21:00 11/04/17 20:46 (Zofran Inj) 4 mg Q6H PRN IVP 11/02/17 19:45 11/04/17 04:15 (Narcan Inj) 0.4 mg UNSCH PRN IV PUSH 11/02/17 19:45 (Pepcid Inj) 20 mg Q12H IV PUSH 11/02/17 21:00 11/05/17 10:07 (Morphine Inj) 2 mg Q3H PRN IV PUSH 11/02/17 21:45 11/04/17 09:59 (Norvasc) 5 mg DAILY PO 11/05/17 09:00 11/05/17 10:06 (KlonoPIN) 0.5 mg BID PO 11/04/17 21:00 11/05/17 10:06 (Ambien) 5 mg HS PRN PO 11/04/17 09:15 (Pravachol) 80 mg HS PO 11/04/17 21:00 11/04/17 20:42 (Protonix) 40 mg DAILY PO 11/05/17 15:00 11/05/17 15:51 A/P Assessment and Plan (1) Anxiety ICD Code: F41.9 - Anxiety disorder, unspecified (2) Esophageal perforation ICD Code: K22.3 - Perforation of esophagus Status: Acute (3) Epigastric abdominal pain ICD Code: R10.13 - Epigastric pain Status: Acute Ms. Driver is an 82 y/o female who presented to the emergency department and [place] complaining of epigastric pain for more than 1 week. She had an abdominal/pelvis CT done that showed a very small hiatal hernia with abnormal appearing thickened distal esophagus. There is a 2.0 x 1.3 cm air-filled collection at the GE junction which may be extraluminal and concerning for focal esophageal perforation. The patient was transferred to [facility] for medical management under the hospitalist service. Questionable Esophageal perforation, continue NPO, Barium swallow tomorrow recommended by Doctor Ras Rodriguez. Epigastric abdominal pain, status post Gastrografin swallow showed epiphrenic diverticulum, status post cholecystectomy, tolerating diet, asked for EGD to be performed in am tomorrow. no nausea, vomit but has diarrhea five BMs today. Severe anxiety stable at this time. -Holding home medications because of concern for esophageal perforation -takes Klonopin at home Coronary artery disease History of [place] per patient -Continuous cardiac telemetry to monitor for cardiac arrhythmias Physical therapy consulted to prevent further debility -patient reports generalized weakness and uses rolling walker for ambulation DVT prophylaxis -SCDs/teds Discussed Condition With Patient in the room. Discharge Planning once cleared by GI specialist. Marky Jenkins MD November 05, 2017 18:11
[2017-11-05 20:00] VITALS: BP 105/68; PULSE 67; RESP 20; TEMP 97.9; O2SAT 98
[2017-11-05] MEDS: PRAVASTATIN SOD 80 MG TAB PO SCH (20:25)
[2017-11-06] VITALS (7 sets, daily range): BP systolic 143–184; BP diastolic 65–95; PULSE 64–79; RESP 17–20; TEMP 97.3–98; O2SAT 96–98
[2017-11-06] MEDS ORDERED: CHLORHEXIDINE GLUCONATE 2 % 1 PACK (2 CLOTHS) TOPICAL PRN (04:00)
[2017-11-06] MEDS ORDERED: POVIDONE IODINE 5% (ANTISEPSIS KIT) 4 APPLICATIONS EACH NARE PRN (04:00)
[2017-11-06] MEDS ORDERED: LACTATED RINGER'S 1000 ML IV PRN (04:00)
[2017-11-06] MEDS: FAMOTIDINE 20 MG/2 ML VIAL IV PUSH SCH (08:57)
[2017-11-06] MEDS: MORPHINE SULFATE 4 MG/ML INJ IV PUSH PRN (08:57)
[2017-11-06] MEDS: clonazePAM 0.5 MG TAB PO SCH ×2 (08:57→20:25)
[2017-11-06] MEDS: PANTOPRAZOLE SOD 40 MG DELAYED RELEASE TAB PO SCH (08:57)
[2017-11-06] MEDS: amLODIPine BESYLATE 5 MG TAB PO SCH (08:57)
[2017-11-06] MEDS: SODIUM CHLOR 0.9% 1000 ML INJ 1,000 ML IV SCH ×2 (09:00→16:24)
[2017-11-06] MEDS: SODIUM CHLORIDE 0.9% FLUSH 10 ML FLUSH IV FLUSH SCH ×2 (09:00→20:30)
--- NOTE | 2017-11-06 09:40 | HHI.PR ---
Subjective Remarks Note from admitting physician as 82 y/o female who presented to the emergency department and [place] complaining of epigastric pain for more than 1 week. She had an abdominal/pelvis CT done that showed a very small hiatal hernia with abnormal appearing thickened distal esophagus. There is a 2.0 x 1.3 cm air-filled collection at the GE junction which may be extraluminal and concerning for focal esophageal perforation. The patient was transferred to [facility] for medical management under the hospitalist service. Her primary care physician gave her penicillin about 3 weeks ago for an ear infection and she had subsequent nausea and vomiting multiple times. She reports having gastritis for the past 10 years. She also reports some left flank pain - urinalysis was negative. She is clearly suffering from severe anxiety during the time of my visit it appears medically stable otherwise. It is difficult to get a good history from her as she tends to veer off topic frequently and frequently loses focus. She is complaining of difficulty sleeping and is requesting her anxiety medication. The patient reports generalized weakness and uses rolling walker for ambulation. Hospitalist Note: 11/03: Seen in her bedroom I do not think she has Esophageal Perforation, her abdomen is benign, also she states had recent workup and was negative. Seen in the presence of her Son in the room. discussed with licensing specialist. 11/04: Stable seen by General surgery after Barium swallow and no surgical procedure needed but Doctor Jennifer recommended for full GI workup asked for GI specialist consult. no nausea, vomit but has diarrhea after the the test performed. 11/05: Discussed in her bedroom with nurse and patient, seen by GI specialist status post Gastrografin swallow showed epiphrenic diverticulum, status post cholecystectomy, tolerating diet, asked for EGD to be performed in am tomorrow. 11/06: Seen in her bedroom, continue with Abdominal pain, status post EGD with snare polypectomy, impression Small hiatal hernia and Gastric polyps, recommended to continue supportive care, advance diet and consider gastric empting scan if symptoms persist. Objective Vital Signs Date Time Temp Pulse Resp B/P (MAP) Pulse Ox O2 Delivery O2 Flow Rate FiO2 11/06/17 08:00 98.0 76 17 143/65 (91) 98 11/06/17 04:00 97.7 67 18 147/65 (92) 96 11/06/17 00:00 97.9 71 18 155/71 (99) 96 11/05/17 20:00 97.9 67 20 105/68 (80) 98 11/05/17 16:00 97.5 66 18 148/65 (92) 98 11/05/17 12:00 97.8 71 19 144/64 (90) 98 I/O 11/05/17 11/05/17 11/05/17 11/06/17 11/06/17 11/06/17 07:00 15:00 23:00 07:00 15:00 23:00 Intake Total 240 ml 640 ml 0 ml Balance 240 ml 640 ml 0 ml Intake Oral 240 ml 640 ml 0 ml # Voids 2 6 2 # Bowel Movements 0 3 0 Result Diagram: 11/04/17 0642 11/04/17 0642 Imaging Last Impressions Upper GI/Barium Swallow X-Ray 11/04/17 0000 Signed Impressions: Service Date/Time: Saturday, November 04, 2017 09:19 - CONCLUSION: Unremarkable examination of the esophagus. No evidence of GE junction injury. Small epiphrenic diverticulum Keon Arreguin MD Procedures None Other Results Laboratory Tests Test 11/04/17 06:42 11/04/17 17:47 White Blood Count 4.6 TH/MM3 Red Blood Count 4.13 MIL/MM3 Hemoglobin 12.8 GM/DL Hematocrit 38.1 % Mean Corpuscular Volume 92.2 FL Mean Corpuscular Hemoglobin 30.9 PG Mean Corpuscular Hemoglobin Concent 33.5 % Red Cell Distribution Width 14.7 % Platelet Count 207 TH/MM3 Mean Platelet Volume 8.6 FL Neutrophils (%) (Auto) 66.7 % Lymphocytes (%) (Auto) 23.0 % Monocytes (%) (Auto) 8.4 % Eosinophils (%) (Auto) 1.5 % Basophils (%) (Auto) 0.4 % Neutrophils # (Auto) 3.1 TH/MM3 Lymphocytes # (Auto) 1.1 TH/MM3 Monocytes # (Auto) 0.4 TH/MM3 Eosinophils # (Auto) 0.1 TH/MM3 Basophils # (Auto) 0.0 TH/MM3 CBC Comment DIFF FINAL Differential Comment Blood Urea Nitrogen 9 MG/DL Creatinine 0.74 MG/DL Random Glucose 73 MG/DL Calcium Level 9.5 MG/DL Sodium Level 141 MEQ/L Potassium Level 3.8 MEQ/L Chloride Level 106 MEQ/L Carbon Dioxide Level 25.3 MEQ/L Anion Gap 10 MEQ/L Estimat Glomerular Filtration Rate 76 ML/MIN Stool C. difficile Toxin (PCR) NEGATIVE Stl C. difficile Toxin Epiderm 027 PRESUMPTIVE NEGATIVE Objective Remarks CONSTITUTIONAL: This is a well-nourished, well-developed elderly female patient, anxious and tearful throughout visit. INTEGUMENTARY: No rashes, ecchymoses or lesions. Cool and dry. HEAD: Atraumatic. Normocephalic. EYES: No scleral icterus. No injection or drainage. ENT: Nose without bleeding, purulent drainage. NECK: Trachea midline. No JVD. CARDIOVASCULAR: Regular rate and rhythm without murmurs, gallops, or rubs. RESPIRATORY: Clear to auscultation. Breath sounds equal bilaterally. No wheezes , rales, or rhonchi. GASTROINTESTINAL: Normal bowel sounds. Abdomen soft, mild epigastric tenderness without rebound, nondistended. No guarding. MUSCULOSKELETAL: Extremities without clubbing, cyanosis, or edema. No calf tenderness. NEUROLOGICAL: Awake and alert. Motor and sensory grossly within normal limits. Normal speech. PSYCHIATRIC: Appears severely anxious and tearful throughout visit. . Medications and IVs Current Medications Medications (Trade) Dose Ordered Sig/Conchis Route Start Time Stop Time Status Last Admin Sodium Chloride 1,000 ml @ 65 mls/hr [id number] IV 11/02/17 20:00 11/06/17 09:00 (NS Flush) 2 ml UNSCH PRN IV FLUSH 11/02/17 19:45 (NS Flush) 2 ml BID IV FLUSH 11/02/17 21:00 11/05/17 20:26 (Zofran Inj) 4 mg Q6H PRN IVP 11/02/17 19:45 11/04/17 04:15 (Narcan Inj) 0.4 mg UNSCH PRN IV PUSH 11/02/17 19:45 (Pepcid Inj) 20 mg Q12H IV PUSH 11/02/17 21:00 11/06/17 08:57 (Morphine Inj) 2 mg Q3H PRN IV PUSH 11/02/17 21:45 11/06/17 08:57 (Norvasc) 5 mg DAILY PO 11/05/17 09:00 11/06/17 08:57 (KlonoPIN) 0.5 mg BID PO 11/04/17 21:00 11/06/17 08:57 (Ambien) 5 mg HS PRN PO 11/04/17 09:15 (Pravachol) 80 mg HS PO 11/04/17 21:00 11/05/17 20:25 (Protonix) 40 mg DAILY PO 11/05/17 15:00 11/06/17 08:57 Lactated Ringer's 1,000 ml @ 30 mls/hr Q24H PRN IV 11/06/17 04:00 11/09/17 03:59 (Betadine 5% Antisepsis Kit) 1 applic PERINATAL INSTRUCTOR PRN EACH NARE 11/06/17 04:00 11/09/17 03:59 (Chlorhexidine 2% Cloth) 3 pack PERINATAL INSTRUCTOR PRN TOPICAL 11/06/17 04:00 11/09/17 03:59 A/P Assessment and Plan (1) Anxiety ICD Code: F41.9 - Anxiety disorder, unspecified (2) Esophageal perforation ICD Code: K22.3 - Perforation of esophagus Status: Acute (3) Epigastric abdominal pain ICD Code: R10.13 - Epigastric pain Status: Acute Ms. Driver is an 82 y/o female who presented to the emergency department and [place] complaining of epigastric pain for more than 1 week. She had an abdominal/pelvis CT done that showed a very small hiatal hernia with abnormal appearing thickened distal esophagus. There is a 2.0 x 1.3 cm air-filled collection at the GE junction which may be extraluminal and concerning for focal esophageal perforation. The patient was transferred to [facility] for medical management under the hospitalist service. Questionable Esophageal perforation, continue NPO, Barium swallow tomorrow recommended by Doctor Ras Rodriguez. Epigastric abdominal pain, status post Gastrografin swallow showed epiphrenic diverticulum, status post cholecystectomy, tolerating diet, 11/06: continue with Abdominal pain, status post EGD with snare polypectomy, impression Small hiatal hernia and Gastric polyps, recommended to continue supportive care, advance diet and consider gastric empting scan if symptoms persist. Severe anxiety stable at this time. -Holding home medications because of concern for esophageal perforation -takes Klonopin at home Coronary artery disease History of [place] per patient -Continuous cardiac telemetry to monitor for cardiac arrhythmias Physical therapy consulted to prevent further debility -patient reports generalized weakness and uses rolling walker for ambulation DVT prophylaxis -SCDs/teds Discussed Condition With Patient and nurse in the room. Discharge Planning once cleared by GI specialist. Marky Jenkins MD November 06, 2017 09:40
[2017-11-06] MEDS ORDERED: PROPOFOL 200 MG/20 ML AMP IV ONE (12:00)
[2017-11-06] MEDS ORDERED: LIDOCAINE HCL 1% PF 5 ML SYRINGE OTHER ONE (12:00)
[2017-11-06] MEDS ORDERED: SUCCINYLCHOLINE CHLORIDE 100 MG/5 ML SYRINGE IV PUSH ONE (12:00)
[2017-11-06] MEDS ORDERED: LIDOCAINE HCL 2% 20 ML VIAL ONE (12:57)
--- NOTE | 2017-11-06 14:50 | PD.PROCEDR ---
GI Procedure PROCEDURE PERFORMED EGD with snare polypectomy INDICATION FOR PROCEDURE Epigastric pain, reflux PROCEDURE: The procedure, risks and benefits were discussed with Patient/POA and informed consent was obtained. Anesthesia sedated Patient with Diprivan. Patient was placed in the left lateral decubitus position. EGD: The Pentax videoscope was introduced through the oropharynx and advanced to the second portion of the duodenum under direct visualization. Retroflexion was performed in the stomach. FINDINGS: The esophagus this appeared to be unremarkable with normal limits The stomach there was a small hiatal hernia there were multiple semi- pedunculated polyps in the gastric body several were removed using cold snare technique for further evaluation otherwise gastric mucosa was unremarkable The duodenum this was normal ESTIMATED BLOOD LOSS: None SPECIMENS REMOVED: Gastric polyp COMPLICATIONS: None IMPRESSION: Small hiatal hernia Gastric polyps PLAN: Await biopsies Continue with current supportive care Monitor labs Advance diet May consider gastric emptying scan if symptoms persist Wisam Regalado MD November 06, 2017 14:50
[2017-11-06] MEDS: PRAVASTATIN SOD 80 MG TAB PO SCH (20:25)
[2017-11-06] MEDS: FAMOTIDINE 20 MG TAB PO SCH (20:26)
[2017-11-07] VITALS: BP 128/60; PULSE 66; RESP 20; TEMP 98.2; O2SAT 97
[2017-11-07 04:00] VITALS: BP 142/64; PULSE 72; RESP 20; TEMP 97.9; O2SAT 96
[2017-11-07] MEDS: SODIUM CHLOR 0.9% 1000 ML INJ 1,000 ML IV SCH (07:48)
[2017-11-07 08:00] VITALS: BP 159/71; PULSE 70; RESP 19; TEMP 97.6; O2SAT 99
[2017-11-07] MEDS: clonazePAM 0.5 MG TAB PO SCH (08:27)
[2017-11-07] MEDS: PANTOPRAZOLE SOD 40 MG DELAYED RELEASE TAB PO SCH (08:27)
[2017-11-07] MEDS: amLODIPine BESYLATE 5 MG TAB PO SCH (08:27)
[2017-11-07] MEDS: FAMOTIDINE 20 MG TAB PO SCH (08:27)
[2017-11-07] MEDS: SODIUM CHLORIDE 0.9% FLUSH 10 ML FLUSH IV FLUSH SCH (08:28)
[2017-11-07 10:30] VITALS: PULSE 99
--- NOTE | 2017-11-07 11:57 | HHI.DCPOC ---
Discharge Care Plan Diagnosis: (1) Gastric polyp (2) Anxiety (3) Costochondritis Goals to Promote Your Health * To prevent worsening of your condition and complications * To maintain your health at the optimal level Directions to Meet Your Goals Take your medications as prescribed Follow your dietary instruction Follow activity as directed Keep your appointments as scheduled Take your immunizations and boosters as scheduled If your symptoms worsen call your PCP, if no PCP go to Urgent Care Center or Emergency Room Smoking is Dangerous to Your Health. Avoid second hand smoke Call the 24-hour hour crisis hotline for domestic abuse at Grupo Crowe MD November 07, 2017 11:57
--- NOTE | 2017-11-07 11:58 | HHI.DS ---
Discharge Summary Admission Date November 02, 2017 at 20:30 Admitting Diagnosis Possible Esophageal Perforation . (1) Anxiety ICD Code: F41.9 - Anxiety disorder, unspecified (2) Esophageal perforation ICD Code: K22.3 - Perforation of esophagus Status: Acute (3) Epigastric abdominal pain ICD Code: R10.13 - Epigastric pain Status: Acute Brief History - From Admission Ms. Driver is an 82 y/o female who presented to the emergency department and [place] complaining of epigastric pain for more than 1 week. She had an abdominal/pelvis CT done that showed a very small hiatal hernia with abnormal appearing thickened distal esophagus. There is a 2.0 x 1.3 cm air-filled collection at the GE junction which may be extraluminal and concerning for focal esophageal perforation. The patient was transferred to [facility] for medical management under the hospitalist service. The patient is seen in her hospital room with grinder operator tool at bedside. She reports that her primary care physician gave her penicillin about 3 weeks ago for an ear infection and she had subsequent nausea and vomiting multiple times. She reports having gastritis for the past 10 years. She also reports some left flank pain - urinalysis was negative. She is clearly suffering from severe anxiety during the time of my visit it appears medically stable otherwise. It is difficult to get a good history from her as she tends to veer off topic frequently and frequently loses focus. She is complaining of difficulty sleeping and is requesting her anxiety medication. The patient reports generalized weakness and uses rolling walker for ambulation. CBC/BMP: 11/04/17 0642 11/04/17 0642 Significant Findings Laboratory Tests Test 11/04/17 17:47 Pt Condition on Discharge: Stable Discharge Disposition: Discharge Home Discharge Instructions DIET: Follow Instructions for: Heart Healthy Diet Activities you can perform: Weight Bearing as Grupo Tejeda MD November 07, 2017 11:58
[2017-11-07] MEDS ORDERED: POLY17S PO (11:59)
[2017-11-07 12:00] VITALS: BP 130/65; PULSE 71; RESP 18; TEMP 98.1; O2SAT 96
[2017-11-07] MEDS ORDERED: SIMETHICONE 80 MG CHEWABLE TAB CHEW PRN (12:00)
--- NOTE | 2017-11-07 13:40 | HHI.GIFU ---
Objective Vitals I&O Vital Signs Date Time Temp Pulse Resp B/P (MAP) Pulse Ox O2 Delivery O2 Flow Rate FiO2 11/07/17 12:00 98.1 71 18 130/65 (86) 96 11/07/17 10:30 99 11/07/17 08:00 97.6 70 19 159/71 (100) 99 11/07/17 04:00 97.9 72 20 142/64 (90) 96 11/07/17 00:00 98.2 66 20 128/60 (82) 97 11/06/17 20:00 97.9 71 20 150/65 (93) 96 11/06/17 16:00 97.7 79 17 168/73 (104) 98 11/06/17 15:15 97.6 75 16 164/80 (108) 95 Room Air 11/06/17 15:00 81 16 170/84 (112) 94 Room Air 11/06/17 14:56 97.6 82 16 179/85 (116) 93 Room Air I/O 11/06/17 11/06/17 11/06/17 11/07/17 11/07/17 11/07/17 07:00 15:00 23:00 07:00 15:00 23:00 Intake Total 0 ml 100 ml 360 ml Balance 0 ml 100 ml 360 ml Intake Oral 0 ml 360 ml Other 100 ml # Voids 2 3 2 # Bowel Movements 0 0 0 Physical Exam HEENT: Pupils round and reactive to light; normocephalic; atraumatic; no jaundice. Throat is clear. NECK: Neck is supple, no JVD, no lymphadenopathy. CHEST: Chest is clear to auscultation and percussion. CARDIAC: Regular rate and rhythm with no murmur gallop or rubs. ABDOMEN: Soft, nondistended, nontender; no hepatosplenomegaly; bowel sounds are present in all four quadrants. EXTREMITIES: No clubbing, cyanosis, or edema. SKIN: Normal; no rash; no jaundice. MACHINE OPERATOR HAY STACKER: No focal deficits; alert and oriented times three. (Hilary Henry) Assessment and Plan Plan ASSESSMENT - epigastric pain, burping, reflux - duration 3 weeks. gastrografin swallow showed epiphrenic diverticulum. s/p cholecystectomy. tolerating diet. gastritis vs PUD. EGD and colonoscopy some years ago in [place]. denies other GI sx 11/07/2017 patient is resting in the bed but moving about appetite good.. Denies any abdominal pain or epigastric pain. Okay to DC from a GI standpoint and follow-up in the office with us. May consider gastric emptying scan if symptoms persist on an outpatient basis. EGD done on 11/06/2017 showing small hiatal hernia and gastric polyps. If patient continues to PLAN: Diet as tolerated biopsies pending Monitor lab supportive care pt seen by myself and Dr Regalado and this note is on his behalf (Hilary Henry) Physician Comments Patient seen and examined Agree with above Continue with current supportive care Monitor labs (Wisam Regalado MD) Hilary Henry November 07, 2017 13:40 Wisam Regalado MD November 08, 2017 00:04
== END 2017-11-07 14:50 | disposition home or self-care (01) | DRG 392 ==
LOC: NEDDLT 20:20 → N07A 20:30
PROVIDERS: ADMIT Hospitalist; ATTEND Hospitalist
PROC: 0DB68ZZ Excision of Stomach, Via Natural or Artificial Opening Endoscopic (ICD-10-PCS; principal; 2017-11-06 14:17)
DX: K22.5 Diverticulum of esophagus, acquired (principal); K31.7 Polyp of stomach and duodenum; K44.9 Diaphragmatic hernia without obstruction or gangrene; F32.9 Major depressive disorder, single episode, unspecified; K21.9 Gastro-esophageal reflux disease without esophagitis; F41.9 Anxiety disorder, unspecified; M94.0 Chondrocostal junction syndrome [Tietze]; E78.5 Hyperlipidemia, unspecified; G47.9 Sleep disorder, unspecified; I25.10 Atherosclerotic heart disease of native coronary artery without angina pectoris; K29.70 Gastritis, unspecified, without bleeding; R19.7 Diarrhea, unspecified; M25.50 Pain in unspecified joint; R63.4 Abnormal weight loss; Z96.652 Presence of left artificial knee joint; Z80.42 Family history of malignant neoplasm of prostate; I25.2 Old myocardial infarction; Z90.49 Acquired absence of other specified parts of digestive tract; Z90.710 Acquired absence of both cervix and uterus
CPT/HCPCS: 71045; 74177; 74220; 80048; 80053; 81001; 83690; 84484; 85025; 87493; 88305; 93005; 96361; 96374; 96375; J0330; J2060; J2270; J2405; J7030; J7040; Q9963; Q9967